=== PATIENT | male | born 1960 | race Caucasian/White ===

== ENCOUNTER 2025-07-10 07:25 | Day surgery (SDC) | payer MEDICARE, MEDICAID ==
[2025-07-03 10:40] LABS: Hematocrit 44.5 % (41.0-53.0); Hemoglobin 14.9 g/dL (13.5-17.5); Mean Corpuscular Hemoglobin 32.8 pg (28.0-32.0); Mean Corpuscular Volume 98.1 fL (80.0-100.0); Nucleated Red Blood Cells % 0.1 %
[2025-07-03 10:53] LABS: INR 0.98 (0.9-1.15); Partial Thromboplastin Time 25.6 SEC (24.5-34.5); Prothrombin Time 10.4 sec (9.3-11.8)
[2025-07-03 11:01] LABS: Urine Protein, UAD Negative (Negative)
[2025-07-03 11:22] LABS: Alanine Aminotransferase 34 U/L (7-40); Albumin 4.3 g/dL (3.2-4.8); Alkaline Phosphatase 49 U/L (46-116); Anion Gap 8 (5-15); BUN/Creatinine Ratio 14.5 (10.0-20.0); Bilirubin, Total 0.4 mg/dL (0.2-1.0); Blood Urea Nitrogen 19 mg/dL (9-23); Calcium 9.3 mg/dL (8.7-10.4); Carbon Dioxide 27 mmol/L (20-31); Chloride 107 mmol/L (98-107); Glucose 91 mg/dL (74-106); Potassium 4.6 mmol/L (3.5-5.1); Sodium 142 mmol/L (136-145); Total Protein 6.8 g/dL (5.7-8.2)
[~2025-07-10] VITALS: Ht 190.5 cm; Wt 97.5 kg
[~2025-07-10 07:25] MED LIST: IBUP-1456 PO; LISI-283 PO; MULT-1018 OR; TRAM-626 PO
[2025-07-10] MEDS ORDERED: MIDAZOLAM HCL 2MG/2ML 2ml VIAL (1mg/ml) ONE (09:41)
[2025-07-10] MEDS ORDERED: ONDANSETRON HCL 4 MG/2 ML VIAL ONE (09:41)
[2025-07-10] MEDS ORDERED: LIDOCAINE 1% INJ PF 5ML AMP ONE (09:41)
[2025-07-10] MEDS ORDERED: fentaNYL CITRATE 100 MCG/2 ML VL ONE (09:41)
[2025-07-10] MEDS ORDERED: PROPOFOL 10 MG/ML 20 ML IV ONE (09:41)
[2025-07-10] MEDS ORDERED: SODIUM CHLORIDE LOCK 10 ML ONE (09:41)
[2025-07-10] MEDS: ceFAZolin 2 GM/D5W50ml 50 ML IV ONE (10:44)
[2025-07-10] MEDS ORDERED: HYDROmorphone HCL 2 MG/ML VL/or syr IV PRN ×2 (10:45)
[2025-07-10] MEDS ORDERED: KETOROLAC TROMETH 30 MG/ML 1ML VIAL IV ONE (10:45)
[2025-07-10] MEDS ORDERED: METOCLOPRAMIDE HCL 5MG/ml INJ 2ml VIAL IV PRN (10:45)
[2025-07-10] MEDS ORDERED: MORPHINE SULFATE 4 MG/ML SYR/VIAL IV PRN (10:45)
[2025-07-10] MEDS: LIDOCAINE W/ EPINEPHRINE 1% 20ML VIAL ONE (11:17)
[2025-07-10] MEDS: BUPIVACAINE 0.5% P/F INJ 10 ML VIAL ONE (11:17)
[2025-07-10 11:20] VITALS: TEMP 98.9; O2SAT 94
[2025-07-10] MEDS ORDERED: MORPHINE SULFATE INJ 2 MG/ml SYRG IV PRN (11:26)
[2025-07-10 11:50] VITALS: BP 117/74; PULSE 51; RESP 12; O2SAT 96
--- NOTE | 2025-08-07 12:24 | DVHOP ---
DATE OF SURGERY: 07/10/2025 SURGEON: Quentin Piedra MD ANESTHESIA: MAC. ANESTHESIOLOGIST: Dr. Jordan. PROCEDURE: Excision of mass below the right shoulder on the back. DESCRIPTION OF PROCEDURE: Under adequate anesthesia with the patient's skin prepped and draped, skin infiltrated with 0.25% Marcaine, 0.5% Xylocaine, epinephrine mixture. The cyst which measured about 2.5-3 cm in diameter. It was excised by means of an elliptical skin incision. Hemostasis was accomplished. Closure was accomplished utilizing Prolene sutures. The patient remained stable throughout the procedure, left the operating room following an accurate needle and sponge counts. Family was thoroughly informed in the waiting area. MD EHSAN Bronson/SHAUNNA TID: [id number] RECEIPT: [id number]
== END 2025-07-10 12:20 | disposition home or self-care (01) ==
LOC: SUR 07:25
PROVIDERS: ATTEND Surgery
DX: L72.0 Epidermal cyst (principal); L72.3 Sebaceous cyst; I12.9 Hypertensive chronic kidney disease with stage 1 through stage 4 chronic kidney disease, or unspecified chronic kidney disease; N18.2 Chronic kidney disease, stage 2 (mild); Z79.899 Other long term (current) drug therapy; Z98.890 Other specified postprocedural states; Z88.8 Allergy status to other drugs, medicaments and biological substances
CPT/HCPCS: 11403; 36415; 80053; 81001; 85025; 85610; 85730; 88305; J0690; J2250; J2405; J2704; J3010; J3490